=== PATIENT | female | born 1990 | race Caucasian/White ===

== ENCOUNTER 2017-12-29 12:20 | Emergency (ER) | payer OTHER ==
--- NOTE | 2017-12-29 12:58 | XRAY Report ---
Reason: strain/pain. Procedure Date: 12/29/2017 Accession Number: [id number] / [id number] Procedure: XR - Foot 3 View RT CPT Code: FULL RESULT: EXAM: RIGHT FOOT RADIOGRAPHY EXAM DATE: 12/29/2017 12:39 PM. CLINICAL HISTORY: Strain/pain. COMPARISON: None. TECHNIQUE: 3 views. FINDINGS: Bones: Normal. No fractures or bone lesions. Joints: Normal. No subluxations. Soft Tissues: Unremarkable. IMPRESSION: Normal foot radiography. [facility]
--- NOTE | 2017-12-29 14:19 | ED Physician Documentation ---
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 : None HEENT: None Psych: Depression Musculoskeletal: None - Past Surgical History Past Surgical History: No - Present Medications Home Medications: Ambulatory Orders Medication Instructions Recorded Confirmed Escitalopram [Lexapro] 20 mg PO DAILY 12/29/17 12/29/17 - Allergies Allergies/Adverse Reactions: Allergies Allergy/AdvReac Type Severity Reaction Status Date / Time No Known Drug Allergies Allergy Verified 12/29/17 12:27 - Social History Does the pt smoke?: No Smoking Status: Never smoker Does the pt drink ETOH?: Yes Does the pt have substance abuse?: No - Immunizations Immunizations are current?: Yes - POLST Patient has POLST: No PD ED PE NORMAL - Vitals Vital signs reviewed: Yes - Extremities Extremities: Other (R foot s deformity, TTP 3rd and 4th MT distal > prox, MSV intact, ankle and leg and knee NT) Results - Vitals Vitals: Vital Signs - 24 hr 12/29/17 12/29/17 12:25 14:25 Temperature 35.7 C L 36.5 C Heart Rate 76 84 Respiratory 15 14 Rate Blood Pressure 140/76 H 123/80 O2 Saturation 97 99 Oxygen O2 Source Room air - Rads (name of study) foot Radiology: See rad report (neg) PD MEDICAL DECISION MAKING - Sepsis Event Vital Signs: Vital Signs - 24 hr 12/29/17 12/29/17 12:25 14:25 Temperature 35.7 C L 36.5 C Heart Rate 76 84 Respiratory 15 14 Rate Blood Pressure 140/76 H 123/80 O2 Saturation 97 99 Oxygen O2 Source Room air Departure - Departure Disposition: 01 Home, Self Care Clinical Impression: Foot sprain Qualifiers: Encounter type: initial encounter Laterality: right Qualified Code(s): S93.601A - Unspecified sprain of right foot, initial encounter Condition: Good Comments: The xray is fine No fracture May bear weight as tolerated If stillhurts in a few more weeks please see you PMD - rarely a hairline crack cannot be seen on initial imaging Discharge Date/Time: 12/29/17 14:27
[2017-12-29 14:27] VITALS: BP 123/80
== END 2017-12-29 14:27 | disposition home or self-care (01) ==
LOC: ED 12:20
DX: S93.601A Unspecified sprain of right foot, initial encounter (principal); X50.1XXA Overexertion from prolonged static or awkward postures, initial encounter; Y93.K1 Activity, walking an animal
CPT/HCPCS: 99282; 99283